=== PATIENT | male | born 1970 | race Caucasian/White ===

== ENCOUNTER 2023-11-10 06:14 | Inpatient (IN) | payer BC, SELFPAY ==
[2023-10-31 07:41] VITALS: BMI 29.6
[2023-10-31 08:50] LABS: Hematocrit 44.5 % (39.0-52.0); Hemoglobin 14.6 g/dL (13.0-18.0); Mean Corp Hgb Conc. 32.8 g/dL (33.0-37.0); Mean Corpuscular Hgb 29.7 pg (27.0-31.0); Mean Corpuscular Volume 90.6 fL (80.0-94.0); Mean Platelet Volume 10.4 fL (7.4-10.4); Platelet Count 283 10^3/uL (130-400); Red Blood Cell Count 4.91 10^6/uL (4.70-6.10); Red Cell Dist. Width 14.4 % (11.5-14.5); White Blood Cell Count 8.4 10^3/uL (4.8-10.8)
[2023-10-31 08:54] LABS: INR 0.92; PT 12.6 Sec (11.4-14.6)
[2023-10-31 08:55] LABS: APTT 26.2 Sec (23.4-35.0)
[2023-10-31 09:17] LABS: ALT (SGPT) 55 U/L (0-50); AST (SGOT) 32 U/L (17-59); Albumin 4.4 g/dl (3.5-5.0); Alkaline Phosphatase 85 U/L (38-126); Blood Urea Nitrogen 19 mg/dl (9-20); Calcium 9.6 mg/dl (8.4-10.2); Carbon Dioxide 29 mmol/L (22-30); Chloride 103 mmol/L (98-107); Estimated Creatinine Clearance 109 ml/min; Glucose 92 mg/dl (70-99); Potassium 4.3 mmol/L (3.5-5.1); Sodium 136 mmol/L (135-145); Total Bilirubin 0.6 mg/dl (0.2-1.3); eGFR > 60.00
[2023-10-31 11:14] LABS: Glycohemoglobin (HgbA1c) 6.1 % (4.0-5.6)
[2023-11-10] VITALS (16 sets, daily range): BP systolic 30–147; BP diastolic 72–100; BMI 29.6
[2023-11-10] MEDS: TYLENOL 1000 MG PO (06:55)
[2023-11-10] MEDS: NEURONTIN 600 MG PO (06:55)
[2023-11-10] MEDS: ENTEREG 12 MG PO (06:55)
[2023-11-10] MEDS: HEPARIN 5000 UNITS SC (06:56)
[2023-11-10] MEDS: NORMOSOL-R 1000 IV (06:56)
--- NOTE | 2023-11-10 11:00 | W.IMMPOSTOP ---
Addendum entered and electronically signed by Oscar Gómez MD 11/10/23 11:09:
Patient's , Farnaz, updated.
Original Note:
Surgical Immed Post Op Note
-
Primary Surgeon: Francheska Gómez MD
Assisting Surgeon: MICHAEL Jones
Pre-op Diagnosis: sigmoid diverticulitis
Post-op Diagnosis: same
Procedure Performed: 1) robotic sigmoidectomy 2) flexible sigmoidoscopy
Anesthesia Type: general plus local
Specimen / Cultures: sigmoid colon
Estimated Blood Loss: 25 cc
Complications: no immediate
Operative Findings: mesh noted from prior left inguinal hernia surgery
#19 Jose Martin in pelvis.
Hinojosa, ureteral stents and ureteral ICG by urology. R stent removed at end of case.
Will send to med surg.
[2023-11-10] MEDS: DILAUDID 0.5 MG IV ×3 (11:32→14:17)
[2023-11-10] MEDS: DEMEROL 12.5 MG IV (12:08)
[2023-11-10] MEDS: TORADOL 15 MG IV ×3 (12:17→23:00)
[2023-11-10 12:51] LABS: % Basophils 0.2 % (0-2); % Immature Granulocytes 0.5 % (0-0.5); % Lymphocytes 3.7 % (20.5-51.1); % Monocytes 2.5 % (1.7-9.3); % Neutrophils 93.1 % (42.2-75.2); Absolute Immature Granulocytes 0.1 10^3/uL (0-0.05); Absolute Lymphocytes 0.6 10^3/uL (1.2-3.4); Absolute Monocytes 0.4 10^3/uL (0.1-0.6); Absolute Neutrophils 15.3 10^3/uL (1.4-6.5); Hematocrit 41.6 % (39.0-52.0); Mean Corp Hgb Conc. 33.7 g/dL (33.0-37.0); Mean Corpuscular Hgb 29.9 pg (27.0-31.0); Mean Corpuscular Volume 88.9 fL (80.0-94.0); Mean Platelet Volume 9.9 fL (7.4-10.4); Nucleated Red Blood Cells % 0 % (-); Platelet Count 294 10^3/uL (130-400); Red Blood Cell Count 4.68 10^6/uL (4.70-6.10); Red Cell Dist. Width 14.1 % (11.5-14.5); White Blood Cell Count 16.4 10^3/uL (4.8-10.8)
[2023-11-10] MEDS: D5LR 1000 IV ×2 (12:51→23:01)
[2023-11-10] MEDS: TYLENOL 650 MG PO ×4 (12:58→23:01)
[2023-11-10 13:02] LABS: Blood Urea Nitrogen 17 mg/dl (9-20); Calcium 8.4 mg/dl (8.4-10.2); Carbon Dioxide 21 mmol/L (22-30); Chloride 101 mmol/L (98-107); Estimated Creatinine Clearance 109 ml/min; Glucose 126 mg/dl (70-99); Magnesium 2.3 mg/dl (1.6-2.3); Potassium 4.1 mmol/L (3.5-5.1); Sodium 135 mmol/L (135-145); eGFR > 60.00
--- NOTE | 2023-11-10 14:57 | PTCARENOTE ---
Pt arrived to 2S in bed. Full assessment completed. Nasal cannula maintained. Pt c/o discomfort at catheter site (feeling the urge to urinate) otherwise denies pain at this time. Abdominal incisions C/D/I, dermabonded and RETAIL ASSOCIATE. IVF infusing per
order. Bed locked and in the lowest position, safety maintained. Oriented to room and call rojas. Pt asking for water ice, RN explained pt is NPO with limited ice chips and sips of clear liquids, pt verbalized understanding.
--- NOTE | 2023-11-10 15:06 | SUR.PHASEI ---
patient in pacu post op robotic sigmoid resection, vss. color good, medicated as ordered for pain and able to sleep, and awake and using phone. to visit briefly in pacu - holding for bed assignment. lab results as noted. notified when
room available and transferred. awake alert and oriented.
[2023-11-10] MEDS: MORPHINE SULFATE 4 MG IV ×3 (16:32→23:00)
[2023-11-10] MEDS: SYMBICORT 160/4.5 MCG INHALER 2 PUFF INH (19:56)
[2023-11-10] MEDS: MYLICON 80 MG PO (23:36)
[2023-11-11 03:00] VITALS: BP 107/78
[2023-11-11] MEDS: TYLENOL PO (04:49)
[2023-11-11] MEDS: MYLICON 80 MG PO (05:19)
[2023-11-11] MEDS: MORPHINE SULFATE 4 MG IV ×5 (05:19→22:08)
[2023-11-11] MEDS: TORADOL 15 MG IV ×4 (05:20→23:13)
[2023-11-11 05:39] LABS: % Basophils 0.2 % (0-2); % Immature Granulocytes 0.4 % (0-0.5); % Lymphocytes 10.1 % (20.5-51.1); % Monocytes 8.6 % (1.7-9.3); % Neutrophils 80.7 % (42.2-75.2); Absolute Lymphocytes 1.1 10^3/uL (1.2-3.4); Hematocrit 37.5 % (39.0-52.0); Hemoglobin 12.6 g/dL (13.0-18.0); Mean Corp Hgb Conc. 33.6 g/dL (33.0-37.0); Mean Corpuscular Hgb 29.8 pg (27.0-31.0); Mean Corpuscular Volume 88.7 fL (80.0-94.0); Mean Platelet Volume 9.9 fL (7.4-10.4); Nucleated Red Blood Cells % 0 % (-); Platelet Count 264 10^3/uL (130-400); Red Blood Cell Count 4.23 10^6/uL (4.70-6.10); Red Cell Dist. Width 14.3 % (11.5-14.5); White Blood Cell Count 11.2 10^3/uL (4.8-10.8)
[2023-11-11 06:00] VITALS: BMI 28.9
[2023-11-11 06:04] LABS: Blood Urea Nitrogen 12 mg/dl (9-20); Calcium 8.6 mg/dl (8.4-10.2); Carbon Dioxide 25 mmol/L (22-30); Chloride 102 mmol/L (98-107); Estimated Creatinine Clearance 124 ml/min; Glucose 140 mg/dl (70-99); Magnesium 2.5 mg/dl (1.6-2.3); Potassium 3.9 mmol/L (3.5-5.1); Sodium 135 mmol/L (135-145); eGFR > 60.00
[2023-11-11 07:29] VITALS: BP 139/86
[2023-11-11] MEDS: SYMBICORT 160/4.5 MCG INHALER 2 PUFF INH ×2 (07:56→20:27)
[2023-11-11] MEDS: SPIRIVA RESPIMAT 2.5 MCG 2 PUFF INH (07:56)
[2023-11-11] MEDS: D5LR 1000 IV (09:28)
[2023-11-11] MEDS: PROTONIX 40 MG PO (09:32)
[2023-11-11] MEDS: TYLENOL 650 MG PO ×5 (09:32→23:14)
--- NOTE | 2023-11-11 09:36 | W.PN.CRS1 ---
Addendum entered and electronically signed by Oscar Gómez MD 11/11/23 13:08:
I saw and examined the patient.
The PA's note was reviewed and I agree with the note.
Comment:
Patient seen in a.m. with PA.
Admits to incisional discomfort. Hungry. No nausea. Admits to flatus.
Vitals normal. White count 11.2. Hemoglobin reasonable at 12.6. Electrolytes reasonable.
Abdomen mildly distended but soft. Incisions look good. MAINOR with serosanguineous fluid.
Trial clears.
DC to stand at bedside. Ordered Garcia removal.
Lovenox this evening.
Out of bed.
Original Note:
Today's Communication / Plan
-
dc garcia
clears
lovenox
Assessment/Plan
-
POD#1 1) robotic sigmoidectomy 2) flexible sigmoidoscopy
1. Vitals normal.
2. WBC 11.2, as expected post op.
3. OOB as tolerated.
4. Stent removed at bedside, okay to remove garcia.
5. Advance diet to clears.
6. Continue MAINOR drain until discharge.
7. Lovenox for DVT prophylaxis.
8. OR pathology pending.
Subjective Data
Procedure
11/10/2023- 1) robotic sigmoidectomy 2) flexible sigmoidoscopy
Subjective Data
Date of Service: November 11, 2023
Patient states he has no nausea or vomiting. He has flatus. He has some pain but it is controlled.
Objective Data
-
Vital Signs
Temp Pulse Resp BP Pulse Ox
97.7 F 75 16 139/86 100
11/11/23 07:29 11/11/23 08:00 11/11/23 08:00 11/11/23 07:29 11/11/23 08:00
Intake & Output
11/10/23 11/11/23 11/12/23
06:59 06:59 06:59
Intake Total 1820 / 1820
Output Total 1225 / 1225
Balance 595 / 595
Intake:
Oral fluids 120 / 120
IV fluids (Total) 1700 / 1700
d5LR 200 / 200
normosol 300 / 300
Output:
Drain Output (Total) 100 / 100
Abdomen 100 / 100
Urinary Drain Output (Total) 0 / 0
Left Ureteral stent 0 / 0
Urine, Garcia 1125 / 1125
Lab Results
11/11/23 05:25
11/11/23 05:25
Physical Exam
-
General: No Acute Distress and AOx3
Abdomen: Soft, Non Distended and Non Tender
Skin: Warm and Dry
Incision: Clear, Dry, Intact
--- NOTE | 2023-11-11 10:08 | CM ---
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 Pharmacy is [facility] in [place],
PCP is Dr. Chalo Carey. Anticipate home with no needs. Patient in agreement.
[2023-11-11 11:48] VITALS: BP 109/69
[2023-11-11 15:51] VITALS: BP 145/85
[2023-11-11] MEDS: LOVENOX 40 MG SC (17:32)
[2023-11-11] MEDS: D5LR IV (19:22)
[2023-11-11] MEDS: FLUSH (NSS) 2 FLUSH IV ×2 (22:08→23:13)
[2023-11-11 23:20] VITALS: BP 120/74
[2023-11-12] MEDS: TYLENOL 650 MG PO ×5 (03:29→23:21)
[2023-11-12] MEDS: MORPHINE SULFATE 4 MG IV ×2 (03:29→10:53)
[2023-11-12] MEDS: FLUSH (NSS) 2 FLUSH IV ×3 (03:31→23:22)
[2023-11-12] MEDS: TORADOL 15 MG IV ×4 (05:15→23:21)
[2023-11-12 06:00] VITALS: BMI 29.2
[2023-11-12 06:30] LABS: % Basophils 0.6 % (0-2); % Eosinophils 1.2 % (0-6); % Immature Granulocytes 0.4 % (0-0.5); % Lymphocytes 28.5 % (20.5-51.1); % Neutrophils 59.3 % (42.2-75.2); Absolute Basophils 0.1 10^3/uL (0-0.2); Absolute Eosinophils 0.1 10^3/uL (0-0.7); Absolute Lymphocytes 2.4 10^3/uL (1.2-3.4); Absolute Monocytes 0.9 10^3/uL (0.1-0.6); Absolute Neutrophils 5.1 10^3/uL (1.4-6.5); Hematocrit 35.4 % (39.0-52.0); Hemoglobin 11.8 g/dL (13.0-18.0); Mean Corp Hgb Conc. 33.3 g/dL (33.0-37.0); Mean Corpuscular Hgb 30.1 pg (27.0-31.0); Mean Corpuscular Volume 90.3 fL (80.0-94.0); Mean Platelet Volume 10.3 fL (7.4-10.4); Nucleated Red Blood Cells % 0 % (-); Platelet Count 237 10^3/uL (130-400); Red Blood Cell Count 3.92 10^6/uL (4.70-6.10); Red Cell Dist. Width 14.5 % (11.5-14.5); White Blood Cell Count 8.6 10^3/uL (4.8-10.8)
[2023-11-12 07:20] VITALS: BP 121/87
[2023-11-12] MEDS: TYLENOL PO (07:40)
[2023-11-12] MEDS: MORPHINE SULFATE 2 MG IV (07:40)
[2023-11-12] MEDS: PROTONIX 40 MG PO (07:40)
[2023-11-12] MEDS: SPIRIVA RESPIMAT 2.5 MCG 2 PUFF INH (07:43)
[2023-11-12] MEDS: SYMBICORT 160/4.5 MCG INHALER 2 PUFF INH ×2 (07:44→18:18)
--- NOTE | 2023-11-12 08:56 | W.PN.CRS1 ---
Today's Communication / Plan
-
fulls
Assessment/Plan
-
POD#2 1) robotic sigmoidectomy 2) flexible sigmoidoscopy
1. Vitals normal.
2. WBC 8.6, normalized.
3. OOB as tolerated.
4. Voiding post garcia removal.
5. Advance diet to fulls
6. Continue EMMIE drain until discharge.
7. Lovenox for DVT prophylaxis.
8. OR pathology pending.
9. Pain medications: Tylenol/Toradol standing, switch Dilaudid IV to Roxicodone PRN.
Subjective Data
Procedure
11/10/2023- 1) robotic sigmoidectomy 2) flexible sigmoidoscopy
Subjective Data
Date of Service: November 12, 2023
Patient states he has flatus. He has no bowel movement yet. He denies nausea or vomiting. He is hungry. He has soreness around his incisions.
Objective Data
-
Vital Signs
Temp Pulse Resp BP Pulse Ox
98.7 F 69 16 121/87 99
11/12/23 07:20 11/12/23 07:49 11/12/23 07:49 11/12/23 07:20 11/12/23 07:49
Intake & Output
11/11/23 11/12/23 11/13/23
06:59 06:59 06:59
Intake Total 1820 / 1820 1480 / 1480
Output Total 1225 / 1225 375 / 375
Balance 595 / 595 1105 / 1105
Intake:
Oral fluids 120 / 120 480 / 480
IV fluids (Total) 1700 / 1700 1000 / 1000
d5LR 200 / 200
normosol 300 / 300
Output:
Drain Output (Total) 100 / 100 75 / 75
Abdomen 100 / 100 75 / 75
Urinary Drain Output (Total) 0 / 0
Left Ureteral stent 0 / 0
Urine, Garcia 1125 / 1125 300 / 300
Other:
Number of approximated SMALL 1
amounts of urine
Number of approximated MODERATE 2
amounts of urine
How many times incontinent 3
MODERATE amount urine
Lab Results
11/12/23 05:14
11/11/23 05:25
Physical Exam
-
General: No Acute Distress and AOx3
Abdomen: Soft, Non Distended, Tender (around incisions) and Other (emmie with serous output)
Skin: Warm and Dry
Incision: Clear, Dry, Intact
[2023-11-12 15:25] VITALS: BP 144/93
[2023-11-12] MEDS: ROXICODONE 10 MG PO ×2 (15:49→20:34)
[2023-11-12 23:25] VITALS: BP 127/92
[2023-11-13] MEDS: ROXICODONE 10 MG PO ×4 (00:29→23:30)
[2023-11-13] MEDS: TYLENOL 650 MG PO ×6 (04:36→23:23)
[2023-11-13 04:51] VITALS: BMI 29.2
[2023-11-13] MEDS: TORADOL 15 MG IV ×4 (05:53→23:16)
[2023-11-13] MEDS: FLUSH (NSS) 2 FLUSH IV (05:55)
[2023-11-13 07:25] VITALS: BP 131/90
[2023-11-13] MEDS: SYMBICORT 160/4.5 MCG INHALER 2 PUFF INH ×2 (07:30→20:45)
[2023-11-13] MEDS: SPIRIVA RESPIMAT 2.5 MCG 2 PUFF INH (07:30)
[2023-11-13] MEDS: PROTONIX 40 MG PO (08:30)
--- NOTE | 2023-11-13 09:48 | PTCARENOTE ---
Addendum entered by Purvi Talbert RN 11/13/23 10:30:
staying another night b/c increased temp 100.5 (pt stated he was sleeping with blankets on head) loren 98.2. labs ordered for AM, Lovenox re-ordered.
Original Note:
pt stated 10mg Oxycodone is making him feel 'high'. Nurse did state he has 5mg and does not have to take the 10. he is concerned about his recovery. Nurse did discuss apply ice more frequently to the site will help. And to take the APAP. He stated
another friend took Motrin and put himself into liver failure so he does not want to NOT take narcotics even though he knows he probably should not. Nurse said there is tramadol. He is very afraid of the pain, he does not to do well with. Did
explain the pain will improve, it will not be fully removed by any med. He took the 10mg and next time will try the 5mg.
--- NOTE | 2023-11-13 11:37 | W.PN.CRS1 ---
Today's Communication / Plan
-
check labs in AM
continue LR diet
Assessment/Plan
-
POD#3 1) robotic sigmoidectomy 2) flexible sigmoidoscopy
1. Tmax of 100.1 last night. Otherwise, vitals normal.
2. Recheck labs in AM.
3. OOB as tolerated.
4. Voiding post garcia removal. Now clear.
5. On a low residue diet.
6. Continue MAINOR drain until discharge.
7. Lovenox for DVT prophylaxis.
8. OR pathology pending.
9. Pain medications: Tylenol/Toradol standing, Roxicodone PRN.
Subjective Data
Procedure
11/10/2023- 1) robotic sigmoidectomy 2) flexible sigmoidoscopy
Subjective Data
Date of Service: November 13, 2023
Patient states he has some pain. He has no nausea or vomiting. He is hungry. He has flatus.
Objective Data
-
Vital Signs
Temp Pulse Resp BP Pulse Ox
97.5 F 75 16 131/90 96
11/13/23 07:25 11/13/23 07:34 11/13/23 07:34 11/13/23 07:25 11/13/23 09:26
Intake & Output
11/12/23 11/13/23 11/14/23
06:59 06:59 06:59
Intake Total 1480 / 1480 1280 / 1280 1360 / 1360
Output Total 375 / 375 75 / 75 201 / 201
Balance 1105 / 1105 1205 / 1205 1159 / 1159
Intake:
Oral fluids 480 / 480 1280 / 1280 1360 / 1360
IV fluids (Total) 1000 / 1000
Output:
Liquid stool amount
Rectum
Drain Output (Total) 75 / 75 75 / 75 200 / 200
Abdomen 75 / 75 75 / 75 200 / 200
Urine, Garcia 300 / 300
Other:
Number of approximated SMALL 1
amounts of urine
Number of approximated MODERATE 2 5 4
amounts of urine
Number of approximated LARGE 2
amounts of urine
How many times incontinent 3
MODERATE amount urine
Lab Results
11/12/23 05:14
11/11/23 05:25
Physical Exam
-
General: No Acute Distress and AOx3
Abdomen: Soft, Non Distended and Tender (around incisions)
Skin: Warm and Dry
Incision: Clear, Dry, Intact
[2023-11-13] MEDS: ROXICODONE 5 MG PO ×2 (13:41→17:49)
[2023-11-13 15:21] VITALS: BP 147/94
--- NOTE | 2023-11-13 15:27 | PTCARENOTE ---
Pt was very pleased with changing to 5mg dose of oxycodone. Did not feel 'high' while still feeling pain relief.
[2023-11-13] MEDS: LOVENOX 40 MG SC (17:50)
[2023-11-13 23:00] VITALS: BP 129/82
[2023-11-14] MEDS: TYLENOL 650 MG PO ×2 (03:57→07:49)
[2023-11-14] MEDS: ROXICODONE 5 MG PO ×2 (03:57→08:43)
[2023-11-14 05:11] LABS: % Basophils 0.5 % (0-2); % Eosinophils 3.7 % (0-6); % Immature Granulocytes 0.5 % (0-0.5); % Lymphocytes 35.1 % (20.5-51.1); % Monocytes 10.2 % (1.7-9.3); Absolute Eosinophils 0.2 10^3/uL (0-0.7); Absolute Lymphocytes 2.3 10^3/uL (1.2-3.4); Absolute Monocytes 0.7 10^3/uL (0.1-0.6); Absolute Neutrophils 3.2 10^3/uL (1.4-6.5); Hematocrit 35.2 % (39.0-52.0); Mean Corp Hgb Conc. 34.1 g/dL (33.0-37.0); Mean Corpuscular Hgb 30.2 pg (27.0-31.0); Mean Corpuscular Volume 88.7 fL (80.0-94.0); Mean Platelet Volume 9.9 fL (7.4-10.4); Nucleated Red Blood Cells % 0 % (-); Platelet Count 259 10^3/uL (130-400); Red Blood Cell Count 3.97 10^6/uL (4.70-6.10); Red Cell Dist. Width 13.7 % (11.5-14.5); White Blood Cell Count 6.5 10^3/uL (4.8-10.8)
[2023-11-14 05:31] LABS: Blood Urea Nitrogen 13 mg/dl (9-20); Calcium 8.6 mg/dl (8.4-10.2); Carbon Dioxide 30 mmol/L (22-30); Chloride 104 mmol/L (98-107); Estimated Creatinine Clearance 97 ml/min; Glucose 91 mg/dl (70-99); Potassium 3.7 mmol/L (3.5-5.1); Sodium 135 mmol/L (135-145); eGFR > 60.00
[2023-11-14 06:00] VITALS: BMI 28.9
[2023-11-14] MEDS: TORADOL 15 MG IV (06:09)
[2023-11-14] MEDS: SYMBICORT 160/4.5 MCG INHALER 2 PUFF INH (07:40)
[2023-11-14] MEDS: SPIRIVA RESPIMAT 2.5 MCG 2 PUFF INH (07:41)
[2023-11-14] MEDS: PROTONIX 40 MG PO (07:51)
[2023-11-14 08:11] VITALS: BP 141/89
--- NOTE | 2023-11-14 08:52 | W.PN.CRS1 ---
Today's Communication / Plan
-
MAINOR removed
DC today, F/U Dr. Gómez in 2-4 weeks
Assessment/Plan
-
53-year-old male with a PMH of asthma/COPD, HLD, history of drug abuse, alpha 1 antitrypsin deficiency, and diverticulitis
POD 4 robotic sigmoidectomy with cystoscopy and bilateral ureteral stent placement by urology (stents now removed)
AFVSS, Hb stable, MAINOR drain removed at bedside
� Continue low residue
� Continue Lovenox for DVT PPx
� Continue pain control with Tylenol, Toradol and oxy as needed
� Continue home meds
� Okay for discharge today, follow-up with Dr. Gómez in 2 to 4 weeks
Subjective Data
Procedure
11/10/2023- 1) robotic sigmoidectomy 2) flexible sigmoidoscopy
Subjective Data
Date of Service: November 14, 2023
No overnight events.
Pain controlled.
Tolerating diet.
+bowel function +voiding
Pt is OOB.
Objective Data
-
Vital Signs
Temp Pulse Resp BP Pulse Ox
97.9 F 75 20 141/89 95
11/14/23 08:11 11/14/23 08:11 11/14/23 08:11 11/14/23 08:11 11/14/23 08:11
Intake & Output
11/13/23 11/14/23 11/15/23
06:59 06:59 06:59
Intake Total 1280 / 1280 2800 / 2800
Output Total 75 / 75 506 / 506
Balance 1205 / 1205 2294 / 2294
Intake:
Oral fluids 1280 / 1280 2800 / 2800
Output:
Liquid stool amount
Rectum
Drain Output (Total) 75 / 75 505 / 505
Abdomen 75 / 75 505 / 505
Other:
Number of approximated MODERATE 5 3
amounts of urine
Number of approximated LARGE 2
amounts of urine
Number of unmeasured liquid
stools
Rectum 1
Lab Results
11/14/23 04:43
11/14/23 04:43
Physical Exam
-
General: No Acute Distress and AOx3
HEENT: Grossly Normal
Abdomen: Soft, Non Distended, Non Tender, No Guarding and No Rebound
Skin: Warm and Dry
Wound: No Signs of Infection, Dressing in Place (With Dermabond; MAINOR removed at bedside) and No Skin Erythema
--- NOTE | 2023-11-14 10:00 | W.DS.TRANS ---
DC Summary - Culinary Specialist
-
Discharge Instructions:
Sleep Apnea Risk Low
Discharge Diagnosis/Procedures robotic sigmoidectomy with cystoscopy and
bilateral ureteral stent placement by urology
Diet Low Residue
Activity No strenuous activity
Additional Activity No lifting over 10 pounds
Driving Restrictions Not until seen by your Dr
Bathing Restrictions OK to Shower
Wound Care Allow glue to naturally fall off. Do not pick
at incisions.
Instructions: Low Fiber Diet
Stand-Alone Forms:
Changes to Home Medications: Yes
Discharge Medications:
DC Medications w/original date entered in [employer]
cholecalciferol (vitamin D3) 25 mcg (1,000 unit) tablet 1,000 units PO DAILY Supplement 05/21/20
acetylcysteine 600 mg capsule (NAC) 600 mg PO DAILY Supplement 06/21/23
albuterol sulfate 90 mcg/actuation aerosol inhaler 1 puff inhalation R QIDPRN PRN sob 06/21/23
budesonide 160 mcg-glycopyr 9 mcg-formot 4.8 mcg/actuation HFA inhaler (Breztri Aerosphere) 2 inh inhalation R BID Lung/Breathing Issues 06/21/23
quercetin 500 mg capsule 500 mg PO DAILY Supplement 06/21/23
zinc sulfate 50 mg zinc (220 mg) capsule 220 mg PO DAILY Supplement 06/21/23
acetaminophen 500 mg tablet (Pain Relief Extra Strength (acetaminophen)) 1,000 mg PO PRN PRN pain 11/08/23
ibuprofen 400 mg tablet 400 mg PO Q6H PRN pain 11/08/23
oxycodone 5 mg tablet 5 mg PO Q6H PRN Pain #20 tabs 11/14/23
Home Medication Changes
oxycodone 5 mg tablet 5 mg PO Q6H PRN Pain #20 tabs 11/14/23
Pending Results: Yes
Additional Pending Results:
OR pathology
[2023-11-14] MEDS: TORADOL IV (11:00)
[2023-11-14] MEDS: TYLENOL PO (12:14)
--- NOTE | 2023-11-14 15:44 | CM ---
Patient has been medically cleared for discharge to home with no additional skilled services. Family transported home.
== END 2023-11-14 12:49 | disposition home or self-care (01) | DRG 331 ==
LOC: 2 SOUTH 06:14
PROVIDERS: Physician Assistant; Specialist; ADMITTING PHYSICIAN Surgery; FAMILY PHYSICIAN Family Medicine
PROC: 0T788DZ Dilation of Bilateral Ureters with Intraluminal Device, Via Natural or Artificial Opening Endoscopic (ICD-10-PCS; 2023-11-10)
PROC: 8E0W4CZ Robotic Assisted Procedure of Trunk Region, Percutaneous Endoscopic Approach (ICD-10-PCS; 2023-11-10)
PROC: 0DTN4ZZ Resection of Sigmoid Colon, Percutaneous Endoscopic Approach (ICD-10-PCS; 2023-11-10)
DX: K57.32 Diverticulitis of large intestine without perforation or abscess without bleeding (principal); J44.89 Other specified chronic obstructive pulmonary disease
CPT/HCPCS: 88307; 36415; 80048; 80053; 83036; 83735; 85025; 85027; 85610; 85730; 86850; 86900; 86901; 93005; 94640; J1335

== ENCOUNTER → 2024-02-14 14:01 | Outpatient (REF) | payer BC, SELFPAY | LOC: RAD 14:01 | PROVIDERS: ATTENDING PHYSICIAN Otolaryngology Facial Plastic Surgery; FAMILY PHYSICIAN Family Medicine | DX: J32.0 Chronic maxillary sinusitis (principal); J34.0 Abscess, furuncle and carbuncle of nose; J34.2 Deviated nasal septum | CPT/HCPCS: 70486 ==

== ENCOUNTER → 2024-04-27 14:58 | Outpatient (REF) | payer BC, SELFPAY | LOC: CLAB 14:58 | PROVIDERS: ATTENDING PHYSICIAN Otolaryngology | DX: H65.02 Acute serous otitis media, left ear (principal) | CPT/HCPCS: 87070; 87107 ==

== ENCOUNTER 2024-05-23 06:13 | Day surgery (SDC) | payer BC, SELFPAY ==
[2024-05-23] VITALS (8 sets, daily range): BP systolic 126–146; BP diastolic 78–102; BMI 28.1
[2024-05-23] MEDS: TYLENOL 1000 MG PO (10:12)
[2024-05-23] MEDS: NORMOSOL-R 1000 IV (10:13)
--- NOTE | 2024-05-23 11:52 | PTCARENOTE ---
Patient updated on time of surgery. Pt offers no complaints at this time. Call rojas within reach. Bathroom offered.
[2024-05-23] MEDS: DILAUDID 0.5 MG IV ×2 (15:08→15:29)
[2024-05-23] MEDS: ROXICODONE 10 MG PO (16:01)
== END 2024-05-23 16:37 | disposition home or self-care (01) ==
LOC: SDS 06:13
PROVIDERS: ATTENDING PHYSICIAN Otolaryngology
DX: J34.2 Deviated nasal septum (principal); J34.3 Hypertrophy of nasal turbinates; J34.89 Other specified disorders of nose and nasal sinuses; H69.82 Other specified disorders of Eustachian tube, left ear; H92.12 Otorrhea, left ear; R51.9 Headache, unspecified
CPT/HCPCS: 31254; 30520; 30140; 31267; 69436; 88304; 88311; 87070; 87075; 87107; 93005; L8699

== ENCOUNTER → 2025-03-06 16:42 | Outpatient (REF) | payer BC, SELFPAY | LOC: HWRAD 16:42 | PROVIDERS: ATTENDING PHYSICIAN Otolaryngology | DX: H65.22 Chronic serous otitis media, left ear (principal) | CPT/HCPCS: 70480 ==

== ENCOUNTER → 2025-04-01 20:05 | Outpatient (REF) | payer BC, SELFPAY | LOC: MRI 3T 20:05 | PROVIDERS: ATTENDING PHYSICIAN Otolaryngology; FAMILY PHYSICIAN Family Medicine | DX: H90.72 Mixed conductive and sensorineural hearing loss, unilateral, left ear, with unrestricted hearing on the contralateral side (principal) | CPT/HCPCS: 70553; A9575 ==

== ENCOUNTER → 2025-07-01 07:06 | Outpatient (REF) | payer BC, SELFPAY | LOC: PAVMRI 07:06 | PROVIDERS: ATTENDING PHYSICIAN Physician Assistant Medical; FAMILY PHYSICIAN Family Medicine; REFERRING PHYSICIAN Orthopaedic Surgery Orthopaedic Surgery of the Spine | DX: M50.20 Other cervical disc displacement, unspecified cervical region (principal); M54.12 Radiculopathy, cervical region | CPT/HCPCS: 72141 ==

== ENCOUNTER 2025-08-21 05:48 | Day surgery (SDC) | payer BC, SELFPAY ==
[2025-08-05 08:55] LABS: Hematocrit 45.0 % (39.0-52.0); Hemoglobin 14.6 g/dL (13.0-18.0); Mean Corp Hgb Conc. 32.4 g/dL (33.0-37.0); Mean Corpuscular Volume 92.8 fL (80.0-94.0); Platelet Count 300 10^3/uL (130-400); Red Cell Dist. Width 14.1 % (11.5-14.5)
[2025-08-05 09:20] LABS: Albumin 4.6 g/dl (3.5-5.0); Carbon Dioxide 30 mmol/L (22-30)
[2025-08-05 09:33] LABS: ALT (SGPT) 54 U/L (0-50); AST (SGOT) 25 U/L (17-59); Alkaline Phosphatase 61 U/L (38-126); Blood Urea Nitrogen 31 mg/dl (9-20); Calcium 9.5 mg/dl (8.4-10.2); Chloride 105 mmol/L (98-107); Glucose 95 mg/dl (70-99); Potassium 4.6 mmol/L (3.5-5.1); Sodium 140 mmol/L (135-145); Total Protein 7.0 g/dl (6.3-8.2); eGFR > 60.00
[2025-08-05 14:03] VITALS: BMI 27.2
[2025-08-21] VITALS (20 sets, daily range): BP systolic 138–186; BP diastolic 86–127; BMI 27.2
[2025-08-21] MEDS: LYRICA 150 MG PO (06:32)
[2025-08-21] MEDS: CELEBREX 200 MG PO (06:32)
[2025-08-21] MEDS: METHOCARBAMOL 1500 MG PO (06:32)
[2025-08-21] MEDS: TYLENOL 1000 MG PO (06:32)
[2025-08-21] MEDS: NORMOSOL-R/PLASMALYTE-A 1000 IV (06:33)
[2025-08-21] MEDS: DILAUDID 0.5 MG IV ×2 (09:30→09:52)
[2025-08-21] MEDS: VERSED 1 MG IV (10:09)
[2025-08-21] MEDS: ROXICODONE 5 MG PO (11:14)
[2025-08-21] MEDS: APRESOLINE 5 MG IV ×2 (11:34→12:03)
[2025-08-21] MEDS: ULTRAM 50 MG PO (11:34)
== END 2025-08-21 12:35 | disposition home or self-care (01) ==
LOC: SDS 05:48
PROVIDERS: ATTENDING PHYSICIAN Orthopaedic Surgery Orthopaedic Surgery of the Spine; FAMILY PHYSICIAN Student in an Organized Health Care Education/Training Program
DX: M47.12 Other spondylosis with myelopathy, cervical region (principal)
CPT/HCPCS: 22551; 22552; 22853 ×2; 22845; 20930; 72020; 80053; 85027; 87070; 93005; C1713